=== PATIENT | female | born 1960 | race Caucasian/White ===

== ENCOUNTER 2019-07-16 15:51 | Emergency (ER) | payer OTHER ==
[2019-07-16 16:03] VITALS: BP 155/90; Wt 70.5 kg
[2019-07-16] MEDS ORDERED: CYCLOBENZAPRINE10 MG PO (18:32)
[2019-07-16] MEDS ORDERED: EC-NAPROSYN500 MG PO (18:32)
== END 2019-07-16 18:56 | disposition home or self-care (01) ==
LOC: D.ER 15:51
DX: S20.219A Contusion of unspecified front wall of thorax, initial encounter (principal); V89.2XXA Person injured in unspecified motor-vehicle accident, traffic, initial encounter; Y93.9 Activity, unspecified; Y92.9 Unspecified place or not applicable; M62.838 Other muscle spasm; S93.601A Unspecified sprain of right foot, initial encounter